=== PATIENT | female | born 1970 | race African-American/Black ===

== ENCOUNTER 2019-01-22 18:41 | Emergency (ER) | payer SELFPAY | END 2019-01-22 20:13 | disposition home or self-care (01) | LOC: ERS 18:41 | DX: S60.440A External constriction of right index finger, initial encounter (principal); E11.9 Type 2 diabetes mellitus without complications; I10 Essential (primary) hypertension; Z79.899 Other long term (current) drug therapy; Z79.84 Long term (current) use of oral hypoglycemic drugs; W49.04XA Ring or other jewelry causing external constriction, initial encounter | CPT/HCPCS: 99283 ==

== ENCOUNTER 2021-11-11 05:29 | Inpatient (IN) | payer MEDICARE, MEDICAID ==
[2021-11-11 06:03] LABS: Bacteria/HPF None Seen HPF (None Seen); Bilirubin Negative (Negative); Blood, Urine Trace (Negative); Clarity Clear (Clear); Glucose, Urine (Dipstick) Greater than 1000 mg/dL (Negative); Ketone, Urine Negative (Negative); Leukocyte Negative Leu/uL (Negative); Nitrite Negative (Negative); Protein, Urine (Dipstick) Negative (Neg-Trace); RBC/HPF 0-3 HPF (0-3); Specific Gravity, Urine 1.029 (1.002-1.036); Squamous Epithelial 0-3 HPF (0-3); Urobilinogen Normal mg/dL (Less than 2)
[2021-11-11 06:11] LABS: Amphetamine Not Detected (NotDetected); Barbiturates Screen Not Detected (NotDetected); Benzodiazepine Screen Not Detected (NotDetected); Cocaine Metabolite Screen Not Detected (NotDetected); Methadone Not Detected (NotDetected); Methamphetamine Not Detected (NotDetected); Opiate Screen Not Detected (NotDetected); Oxycodone Screen Not Detected (NotDetected); Phencyclidine (PCP) Not Detected (NotDetected); THC/Cannabinoid Screen Not Detected (NotDetected); Tricyclic Screen Not Detected (NotDetected)
[2021-11-11 06:40] LABS: Hemoglobin 13.5 g/dL (12.0-16.0); Mean Corpuscular HGB CONC 31.6 g/dL (32.0-36.0); Mean Corpuscular Hemoglobin 28.8 pg (27.0-31.0); Mean Corpuscular Volume 91.2 fL (78.0-98.0); RBC Distribution Width 13.8 % (11.5-14.5); Red Blood Cell (RBC) Count 4.69 mill/uL (4.20-5.40); White Blood Cell (WBC) Count 6.3 thou/uL (4.8-10.8)
[2021-11-11 06:54] LABS: #Basophils 0.1 thou/uL (0.0-0.2); #Eosinphils 0.2 thou/uL (0.0-0.7); #Lymphocytes 1.6 thou/uL (1.20-3.40); #Monocytes 0.5 thou/uL (0.11-0.59); #Neutrophils 3.9 thou/uL (1.40-6.50); %Basophils 0.9 % (0.0-1.0); %Eosinophils 3.6 % (0.0-10.0); %Lymphocytes 25.5 % (21.0-51.0); %Monocytes 8.4 % (0.0-10.0); %Neutrophils 61.7 % (42.0-75.0); Large Platelets SLIGHT; MDiff Complete? YES; Mean Platelet Volume 12.8 fL (7.4-10.4); Platelet Count 157 thou/uL (130-400); Platelet Morphology Comment Appears Adequate
[2021-11-11 07:07] LABS: ALT (SGPT) 36 U/L (8-55); AST (SGOT) 37 U/L (5-34); Alkaline Phosphatase 182 U/L (40-110); BUN (Urea Nitrogen) 14 mg/dL (7.0-18.7); Bilirubin, Total 0.6 mg/dL (0.2-1.2); Calc. Creatinine Clearance 0 mL/min (70-130); Calcium 9.1 mg/dL (7.8-10.44); Carbon Dioxide 21 mmol/L (22-29); Chloride 84 mmol/L (98-107); Estimated GFR 23; Globulin 4.1 g/dL (2.4-3.5); Magnesium 2.5 mg/dL (1.6-2.6); Potassium 3.4 mmol/L (3.5-5.1); Protein, Total 8.1 g/dL (6.0-8.3); Sodium 124 mmol/L (136-145)
[2021-11-11] MEDS ORDERED: INSULIN REGULAR IN 0.9 % NACL 100 UNIT/100 ML BAG ONE (09:01)
[2021-11-11] MEDS ORDERED: Insulin Regular 300 UNITS/3 ML VIAL ONE (09:05)
[2021-11-11 09:07] LABS: Glucose 1098 mg/dL (70-105)
[2021-11-11 09:08] LABS: Anion Gap 22 mmol/L (10-20)
[2021-11-11] MEDS ORDERED: Lorazepam (BATCHED) 2 MG/ML SYR ONE (09:27)
[2021-11-11 09:44] LABS: Actual Bicarbonate (HCO3v) 26 mEq/L (22-28); Analyzer IN Cardio ER; Calcium, Ionized (venous) 1.08 mmol/L (1.16-1.32); Chloride (VBG) 96 mmol/L (98-106); Hemoglobin (Hb) 14.7 g/dL (11.7-16.0); Potassium (VBG) 3.38 mmol/L (3.70-5.30); Sodium 133.6 mmol/L (133-146); pH (venous) 7.36 (7.32-7.43)
[2021-11-11] MEDS ORDERED: D5 1/2 NS w/20 mEq KCL 1,000 ML IV PRN (10:17)
[2021-11-11] MEDS ORDERED: Dextrose 5 %-0.45 % NaCl 1,000 ML IV PRN (10:17)
[2021-11-11] MEDS ORDERED: Acetaminophen 325 MG TAB PO PRN (10:17)
[2021-11-11] MEDS ORDERED: NS 0.9% w/ 20 MEQ KCL 1,000 ML IV PRN ×2 (10:17)
[2021-11-11] MEDS ORDERED: Electrolyte Replacement Protocol 1 EACH IVPB PRN (10:17)
[2021-11-11] MEDS ORDERED: Sodium Chloride 0.9% 1,000 ML IV PRN ×4 (10:17)
[2021-11-11] MEDS ORDERED: Lorazepam (BATCHED) 2 MG/ML SYR SLOW IVP PRN (10:28)
[2021-11-11] MEDS ORDERED: Potassium Chloride 20 MEQ in Premix Bag 1 BAG IVPB SCH (10:30)
[2021-11-11] MEDS ORDERED: HUMULIN R 100 UNITS in Sodium Chloride 0.9% 100 ML IVPB SCH (10:30)
[2021-11-11] MEDS ORDERED: hydrOXYzine 25 MG TAB PO PRN (10:32)
[2021-11-11] MEDS ORDERED: traZODone HCl 50 MG TAB PO PRN (10:35)
[2021-11-11] MEDS ORDERED: HYDROcodone/Acetaminophen 7.5/325 mg Tablet PO PRN (10:35)
[2021-11-11] MEDS ORDERED: NS 0.9% w/ 40 MEQ KCL 1,000 ML IV SCH (11:00)
[2021-11-11 11:02] LABS: Anion Gap 20 mmol/L (10-20); BUN (Urea Nitrogen) 12 mg/dL (7.0-18.7); Calc. Creatinine Clearance 0 mL/min (70-130); Calcium 8.9 mg/dL (7.8-10.44); Carbon Dioxide 22 mmol/L (22-29); Chloride 98 mmol/L (98-107); Estimated GFR 30; Glucose 791 mg/dL (70-105); Potassium 4.5 mmol/L (3.5-5.1); Sodium 135 mmol/L (136-145)
[2021-11-11 11:42] LABS: Hemoglobin A1c 13.3 % (4.0-6.0)
[2021-11-11 15:26] VITALS: BMI 33.3
[2021-11-11 17:02] LABS: Anion Gap 13 mmol/L (10-20); BUN (Urea Nitrogen) 8 mg/dL (7.0-18.7); Calc. Creatinine Clearance 81 mL/min (70-130); Calcium 8.3 mg/dL (7.8-10.44); Carbon Dioxide 24 mmol/L (22-29); Chloride 112 mmol/L (98-107); Estimated GFR 58; Glucose 237 mg/dL (70-105); Sodium 146 mmol/L (136-145)
[2021-11-11 17:06] LABS: Potassium 2.9 mmol/L (3.5-5.1)
[2021-11-11] MEDS ORDERED: Potassium Chloride 20 MEQ TAB PO SCH (17:15)
[2021-11-11] MEDS ORDERED: Dextrose 50% Abboject 50 ML SYRINGE IVP PRN (17:30)
[2021-11-11] MEDS ORDERED: Potassium Chloride 20 MEQ in Lactated Ringer's 1,000 ML IV SCH (17:30)
[2021-11-11] MEDS ORDERED: Dextrose 5% in Water 1,000 ML IV PRN (17:30)
[2021-11-11] MEDS: Potassium Chloride 20 MEQ in Premix Bag 1 BAG IVPB SCH ×2 (17:50→20:53)
[2021-11-11] MEDS: tiZANidine HCl 4 MG TAB PO SCH ×3 (18:34→23:42)
[2021-11-11] MEDS ORDERED: Insulin Glargine 30 UNITS/0.3 ML VIAL SC SCH (21:00)
[2021-11-11] MEDS: Atorvastatin Calcium 20 MG TAB PO SCH (21:13)
[2021-11-11] MEDS: Pregabalin 75 MG CAP PO SCH (21:13)
[2021-11-11] MEDS: levETIRAcetam 500 MG TAB PO SCH (21:19)
[2021-11-11] MEDS: HumaLOG 300 UNITS/3 ML VIAL SC PRN ×2 (21:52→23:58)
[2021-11-12 01:38] LABS: Anion Gap 11 mmol/L (10-20); BUN (Urea Nitrogen) 7 mg/dL (7.0-18.7); Calc. Creatinine Clearance 82 mL/min (70-130); Calcium 8.1 mg/dL (7.8-10.44); Carbon Dioxide 23 mmol/L (22-29); Chloride 111 mmol/L (98-107); Estimated GFR 59; Glucose 350 mg/dL (70-105); Potassium 3.9 mmol/L (3.5-5.1); Sodium 141 mmol/L (136-145)
[2021-11-12 04:07] LABS: Anion Gap 11 mmol/L (10-20); BUN (Urea Nitrogen) 7 mg/dL (7.0-18.7); Calc. Creatinine Clearance 81 mL/min (70-130); Carbon Dioxide 24 mmol/L (22-29); Chloride 112 mmol/L (98-107); Estimated GFR 57; Glucose 339 mg/dL (70-105); Potassium 4.1 mmol/L (3.5-5.1); Sodium 143 mmol/L (136-145)
[2021-11-12 04:30] LABS: #Basophils 0.1 thou/uL (0.0-0.2); #Eosinphils 0.4 thou/uL (0.0-0.7); #Lymphocytes 3.7 thou/uL (1.20-3.40); #Monocytes 0.6 thou/uL (0.11-0.59); #Neutrophils 4.8 thou/uL (1.40-6.50); %Basophils 0.6 % (0.0-1.0); %Eosinophils 4.2 % (0.0-10.0); %Lymphocytes 38.6 % (21.0-51.0); %Monocytes 6.6 % (0.0-10.0); %Neutrophils 49.9 % (42.0-75.0); Hemoglobin 12.3 g/dL (12.0-16.0); Mean Corpuscular HGB CONC 33.7 g/dL (32.0-36.0); Mean Corpuscular Hemoglobin 29.3 pg (27.0-31.0); Mean Corpuscular Volume 87.1 fL (78.0-98.0); Mean Platelet Volume 11.7 fL (7.4-10.4); Platelet Count 132 thou/uL (130-400); RBC Distribution Width 14.2 % (11.5-14.5); RBC Morphology Normal; White Blood Cell (WBC) Count 9.5 thou/uL (4.8-10.8)
[2021-11-12] MEDS: HumaLOG 300 UNITS/3 ML VIAL SC PRN ×4 (04:43→16:49)
[2021-11-12] MEDS: tiZANidine HCl 4 MG TAB PO SCH ×2 (07:19→07:55)
[2021-11-12] MEDS: Enoxaparin Sodium 40 MG/0.4 ML SYRINGE SC SCH (07:52)
[2021-11-12] MEDS: levETIRAcetam 500 MG TAB PO SCH ×2 (07:52→20:10)
[2021-11-12] MEDS: Pregabalin 75 MG CAP PO SCH ×2 (07:52→20:10)
[2021-11-12] MEDS: Amlodipine 10 MG TAB PO SCH (07:53)
[2021-11-12] MEDS ORDERED: metFORMIN 500 MG TAB PO SCH (17:00)
[2021-11-12] MEDS: Sodium Chloride 0.9% 1,000 ML IV SCH (18:20)
[2021-11-12] MEDS: Atorvastatin Calcium 20 MG TAB PO SCH (20:10)
[2021-11-12] MEDS: Insulin Glargine 30 UNITS/0.3 ML VIAL SC SCH (20:11)
[2021-11-12] MEDS ORDERED: tiZANidine HCl 4 MG TAB PO PRN (20:48)
[2021-11-13] MEDS: Sodium Chloride 0.9% 1,000 ML IV SCH ×3 (01:06→17:35)
[2021-11-13] MEDS ORDERED: glipiZIDE 5 MG TAB PO SCH (07:30)
[2021-11-13] MEDS: levETIRAcetam 500 MG TAB PO SCH (08:44)
[2021-11-13] MEDS: Pregabalin 75 MG CAP PO SCH (08:44)
[2021-11-13] MEDS: metFORMIN 500 MG TAB PO SCH ×2 (08:45→16:43)
[2021-11-13] MEDS: Amlodipine 10 MG TAB PO SCH (08:45)
[2021-11-13] MEDS: Insulin Glargine 30 UNITS/0.3 ML VIAL SC SCH (08:46)
[2021-11-13] MEDS: Enoxaparin Sodium 40 MG/0.4 ML SYRINGE SC SCH (08:46)
[2021-11-13] MEDS ORDERED: Losartan 25 MG TAB PO SCH (09:00)
[2021-11-13 09:01] VITALS: BP 151/94; TEMP 97.5
[2021-11-13] MEDS: HumaLOG 300 UNITS/3 ML VIAL SC PRN (09:50)
== END 2021-11-13 21:00 | disposition home or self-care (01) | DRG 638 ==
LOC: ERS 05:29 → ERHOLD 09:30 → CCU 13:50 → T4-A 11-12 17:26
PROVIDERS: ADMIT Internal Medicine; ATTEND Internal Medicine
DX: E11.00 Type 2 diabetes mellitus with hyperosmolarity without nonketotic hyperglycemic-hyperosmolar coma (NKHHC) (principal); B20 Human immunodeficiency virus [HIV] disease; N17.9 Acute kidney failure, unspecified; Z20.822 Contact with and (suspected) exposure to COVID-19; I10 Essential (primary) hypertension; F32.A Depression, unspecified; E87.6 Hypokalemia; E11.69 Type 2 diabetes mellitus with other specified complication; G40.909 Epilepsy, unspecified, not intractable, without status epilepticus; E78.2 Mixed hyperlipidemia; E87.8 Other disorders of electrolyte and fluid balance, not elsewhere classified; Z79.899 Other long term (current) drug therapy
CPT/HCPCS: 36415; 36416; 70450; 80053; 80306; 81003; 81015; 82010; 82805; 83036; 83735; 83930; 84484; 85025; 93005; J1650; J1815; J2060; J3480; J7050; J7120; U0003; U0005